=== PATIENT | male | born 1960 ===

== ENCOUNTER → 2019-04-09 | Outpatient (CLI) | payer OTHER ==
[~2019-04-09] VITALS: Ht 175.3 cm; Wt 131.5 kg
[~2019-04-09] MED LIST: ALEVE220 MG PO; ASPIR 8181 MG PO; B-COMPLEX TABL0.4 MG PO; CALCIUM 600 +1 EAC2 PO; CRESTOR10 MG PO; DEMADEX20 MG PO; IRON325 PO; K-DUR 20 MEQ T20 MEQ PO; LOPERAMIDE 2 MG2 M1 PO; PRENATAL MULTI1 EAC4 PO; PROTONIX40 M1 PO; SILDENAFIL20 MG PO; VITAMIN D5000 UNIT PO; [UNRECOGNIZED DRUG - OTHER] PO
[2019-04-09 14:44] VITALS: BP 131/79
--- NOTE | 2019-04-09 15:18 | NUR ---
Pain Clinic Assessment: 1. History of Osteoarthritis: Not Applicable History of Rheumatoid Arthritis: Not Applicable 2. Height: 5 ft. 9 in. 175.3 cm. Weight: 290.0 lb. oz. 131.544 kg. Patient's BMI: 42.8 3. Vital Signs: BP: 131/79 Pulse: 70 Resp: 16 Temp: 02 Sat: 98 ECG Mon: 4. Pain Intensity: 8 5. Fall Risk: Dizziness: Y Needs help standing or walking: N Fallen in the last 3 months: N Fall risk comments: 6. Patient on Blood Thinner: None 7. History of Hypertension: Y 8. Opioid Therapy greater than 6 weeks: N Opiate Contract Signed: 9. Risk Assessment Tool Provided: 10. Functional Assessment Tool: 11. Recreational Drug Use: Never Drug Type: Tobacco Use: Former Smoker Tobacco Type: Cigars Amount or Packs/day: How Many Years: Alcohol Use: Yes Frequency: Daily Quant: 4-5
--- NOTE | 2019-04-23 13:03 | HPC ---
[facility] [address] [place] [address] PAIN MANAGEMENT CONSULTATION Name: JAMES PARISI [id number] Admission: 04/09/19 ������������������ Attend Phys: Travis Peck DO Discharge: ������������������ Date of : 56 Report #: [id number] THIS REPORT FOR: //name// CC: Juan Peck DATE OF SERVICE: 04/09/2019 REFERRING PHYSICIAN: Jr Hinton M.D. CHIEF COMPLAINT: Low back pain. HISTORY OF PRESENT ILLNESS: As you know, the patient is a pleasant 58-year-old male who reports acute onset of low back pain and upper buttock pain that presented 10/2017 or 11/2017. The patient denies any specific injury or trauma that may have led to symptom development. He states that he experienced some numbness and tingling in the lower extremities, which actually preceded his back pain. He has participated in home physical therapy program that is physician directed. He has sought chiropractic manipulation, acupuncture therapy and has taken nonsteroidal anti-inflammatories. Unfortunately, this has not improved the patient's symptoms. Due to lack of improvement with conservative treatment options, the patient was subsequently referred to our clinic. The patient indicates today pain is continuous, steady and constant. He describes the pain as shooting, throbbing, sharp and stabbing, numbness and tingling. He places current pain score at 8/10, daily average at 8-9/10, worst the pain has been is 10/10. The patient states the pain is exacerbated with sudden movements and certain activities; it improves with lying down to rest. He has been referred to our service to discuss treatment options for suspected lumbar radiculopathy. PAST MEDICAL HISTORY: 1. Morbid obesity. 2. Osteoarthritis. 3. Gastroesophageal reflux disease. 4. Dyslipidemia. 5. Erectile dysfunction. PAST SURGICAL HISTORY: 1. Cholecystectomy. 2. Biliopancreatic diversion. SOCIAL HISTORY: The patient denies tobacco, IV or illicit drug use. Admits to 5 alcoholic beverages per day. 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 He is working, not receiving workmen's compensation nor is he trying to obtain disability benefits. [place] [address] PAIN MANAGEMENT CONSULTATION Name: ISAKJAMES CHAVESUR Room #: REG [facility].#: [id number] Admission: 04/09/19 ������������������ Attend Phys: Travis Peck DO Discharge: ������������������ Date of : 56 Report #: [id number] litigation in regards to pain. He is unaccompanied at today's visit. REVIEW OF SYSTEMS: Positive for weight gain, fatigue and weakness, wearing corrective eyewear, hearing loss with tinnitus, shortness of breath lying flat, frequent diarrhea interspersed with constipation, nocturia, sexual difficulty, lightheadedness, dizziness, numbness and tingling sensations and head injury. All other review of systems negative per 12-point review of systems, other than those listed in the history of present illness. Pain impact score 48/70, indicating [id number] interference with daily activities secondary to pain. ALLERGIES: No known drug allergies. CURRENT MEDICATIONS: Torsemide 20 mg once a day, sildenafil 20 mg p.r.n., ferrous sulfate 325 mg per day, Devrom Bismuth 200 mg twice a day, naproxen sodium 220 mg twice a day, cholecalciferol 5000 units once a day, Imodium 2 mg p.r.n., aspirin 81 mg per day, vitamin B complex 1 tab per day, calcium carbonate 1 tab per day, pantoprazole 40 mg per day, potassium chloride 20 mEq p.o. daily and lovastatin 10 mg per day. IMAGING DATA: MRI lumbar spine obtained 02/09/2019 shows L1-L2, no disk herniation, central canal neural foraminal stenosis. L2-L3, no evidence of disk herniation, central canal neural foraminal stenosis. L3-L4, mild bilateral facet degenerative changes, mild associated left foraminal narrowing; right foramen is normal. There is no central canal stenosis. L4-L5, [id number] bilateral facet degenerative changes, resulting in 3 mm anterolisthesis-associated moderate bilateral neural foraminal narrowing. No definitive nerve root impingement, moderate central canal stenosis. L5-S1, mild bilateral facet arthropathy. No evidence of disk herniation or central canal stenosis or foraminal stenosis. PHYSICAL EXAMINATION: VITAL SIGNS: Blood pressure 131/79, pulse 70, respiratory rate 16 and unlabored. The patient is 98% on room air. Height 5 feet 9 inches tall, weight 290 pounds, BMI calculated 42.8. GENERAL: Well-developed, well-nourished, well-hydrated, morbidly obese 58-year-old male, appearing his stated age. Pain is rated around 8/10. HEENT: Normocephalic, atraumatic. Pupils equal, round and reactive to light. Extraocular muscles are intact. Sclerae nonicteric without injection. NEUROLOGIC: Cranial nerves 2-12 grossly intact. Speech fluent. The patient deemed a good historian. LUNGS: Clear. No wheezes, rhonchi or rales. CARDIOVASCULAR: Regular. No appreciable gallop, no rub. ABDOMEN: Soft, obese. Normoactive bowel sounds. EXTREMITIES: Show no clubbing, no cyanosis and no edema. [facility] [address] [place] [address] PAIN MANAGEMENT CONSULTATION Name: ISAKJAMES IVÁN Room #: REG [facility] Turner#: [id number] Admission: 04/09/19 ������������������ Attend Phys: Travis Peck DO Discharge: ������������������ Date of : 56 Report #: [id number] MUSCULOSKELETAL: Lower extremity strength appears symmetrical, 5/5. Slight giveaway strength noted with hip flexion, knee extension on the right, causing buttock and posterolateral thigh pain. The patient appears to be intact to light touch from L1 through S2 dermatomes. Seated straight leg raising negative. Supine straight leg raising positive on the right. Epifanio's test negative. Modified Gaenslen's positive for axial low back pain. Ankle clonus negative. Babinski is negative. Muscle bulk and tone appear symmetrical in the lower extremities. ASSESSMENT: 1. Lumbar radiculopathy. 2. Spinal stenosis of the lumbar spine. 3. Displacement of lumbar intervertebral disk with radiculopathy. 4. Lumbosacral spondylosis with radiculopathy. 5. Neural foraminal stenosis of the lumbar spine. 6. Degeneration of the lumbar spine. 7. Chronic intractable pain. PLAN: 1. Based on today's physical exam and history the patient has provided, the description the patient uses in regards to pain as well as location of symptoms, likely source of the patient's pain is lumbar radiculopathy. He also suffers from what appears to be some facet arthropathy causing axial back pain issues. We discussed with the patient the treatment options for lumbar radicular symptoms today. The following was discussed with the patient. We discussed physical therapy, stretching exercise, core strengthening and weight loss as a treatment option. We discussed medication management, adding neuropathic pain medication or low-dose opioid for pain control. We discussed epidural injections under fluoroscopic guidance, for which the patient was referred to our clinic. We also discussed intra-articular facet injections, medial branch nerve blocks to address any facet arthropathy pain. We also discussed surgical options. After reviewing risks and benefits of all proposed treatment options, the patient chose to begin with physical therapy, stretching exercise, core strengthening and an attempt at weight loss. 2. The patient was offered and provided a referral for physical therapy. The patient can begin the physical therapy at his earliest convenience. The patient will trial the more conservative option initially. If this is ineffective, then he will return and we will discuss further treatment options. He was given a referral for physical therapy today. 3. We made no changes in the patient's medication management. He will continue medications as previously prescribed. 4. We will see the patient back in followup visit on an as needed basis. He wishes to trial more conservative treatment before moving forward with more aggressive treatment options. We will be available to see him back in followup visit. [address] [address] PAIN MANAGEMENT CONSULTATION Name: JAMES PARISI Room #: REG [facility] Turner#: [id number] Admission: 04/09/19 ������������������ Attend Phys: Travis Peck DO Discharge: ������������������ Date of : 56 Report #: [id number] We wish to thank Dr. Jr Hinton for the referral of the patient to our clinic. We will keep you apprised of his response to treatment as we address ongoing back pain issues. Again, we wish to thank you for the opportunity to see this patient in consultation. ��������������������������������������������� <ELECTRONICALLY SIGNED> ���������������������������������������� By: Travis Peck DO ��������������������������������������������� 04/23/19 1303 1320 1415 Travis Peck DO /nt
== END ==
LOC: PAIN 06:58
DX: M47.27 Other spondylosis with radiculopathy, lumbosacral region (principal); M48.062 Spinal stenosis, lumbar region with neurogenic claudication; M51.16 Intervertebral disc disorders with radiculopathy, lumbar region; G89.4 Chronic pain syndrome; Z79.899 Other long term (current) drug therapy

== ENCOUNTER → 2019-09-24 | Outpatient (CLI) | payer OTHER ==
[~2019-09-24] VITALS: Ht 172.7 cm; Wt 137.4 kg
[~2019-09-24] MED LIST changes: +DICLOFENAC SOD50 M1 PO
[2019-09-24 08:08] VITALS: BP 145/82
--- NOTE | 2019-09-24 08:17 | NUR ---
Pain Clinic Assessment: 1. History of Osteoarthritis: DENIES History of Rheumatoid Arthritis: DENIES 2. Height: 5 ft. 8 in. 172.7 cm. Weight: 303.0 lb. oz. 137.440 kg. Patient's BMI: 46.1 3. Vital Signs: BP: 145/82 Pulse: 74 Resp: 18 Temp: 02 Sat: 95 ECG Mon: 4. Pain Intensity: 7-8 5. Fall Risk: Dizziness: N Needs help standing or walking: N Fallen in the last 3 months: N Fall risk comments: 6. Patient on Blood Thinner: None 7. History of Hypertension: Y 8. Opioid Therapy greater than 6 weeks: N Opiate Contract Signed: 9. Risk Assessment Tool Provided: 10. Functional Assessment Tool: 11. Recreational Drug Use: Never Drug Type: Tobacco Use: Former Smoker Tobacco Type: Amount or Packs/day: How Many Years: Alcohol Use: Yes Frequency: Daily Quant: BEER- 2-3 A DAY
--- NOTE | 2019-09-25 12:58 | HPC ---
[facility] [address] [place] [address] PAIN MANAGEMENT CONSULTATION Name: ISAKJR JAMES MINOR Room #: REG [facility].#: [id number] Admission: 09/24/19 Attend Phys: Travis Peck DO Discharge: Date of : 56 Report #: [id number] THIS REPORT FOR: //name// CC: Jr Peck DATE OF SERVICE: 09/24/2019 REFERRING PHYSICIAN: Jr Hinton MD. CHIEF COMPLAINT: Low back pain, bilateral lower extremity pain. HISTORY OF PRESENT ILLNESS: As you know, the patient is a pleasant 58-year-old male returning in followup visit stating that physical therapy that we provided for treatment at last visit has been mildly effective. Unfortunately, the patient cannot maintain a schedule of physical therapy and thus has lost efficacy. He returns today in followup visit, rating pain today 7-8/10. He states that pain begins in low back, radiates down both legs. He has bilateral lower extremity paresthesias that may be due to the L4-L5 central canal stenosis. He returns to discuss options for treatment. He denies new injury, trauma or any changes in medical issues since our last visit. ALLERGIES: No known drug allergies. CURRENT MEDICATIONS: Torsemide, sildenafil, ferrous sulfate, Devrom Bismuth, naproxen, cholecalciferol, Imodium, aspirin, vitamin B complex, calcium carbonate, pantoprazole, potassium chloride, lovastatin. SOCIAL HISTORY: The patient denies tobacco, IV or illicit drug use. Admits to 5 alcoholic beverages per day. 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 IMAGING: No new imaging available. PHYSICAL EXAMINATION: VITAL SIGNS: Blood pressure 145/82, pulse 74, respiratory rate 18 and unlabored. The patient is 95% on room air. Height 5 feet 8 inches tall, weight 303 pounds, BMI calculated 46.1. GENERAL: Well-developed, well-nourished, well-hydrated, severely morbidly obese 58-year-old male appearing stated age, pain is rated around 7-8/10. HEENT: Normocephalic, atraumatic. Pupils equal, round, reactive to light. EXTREMITIES: Show no clubbing, no cyanosis, and no edema. MUSCULOSKELETAL: Lower extremity strength equal and symmetrical 5/5, intact to light touch from L1 through S2 dermatomes. Seated straight leg raising is negative. Supine straight leg raising is positive on the right. Epifanio's test [address] [address] PAIN MANAGEMENT CONSULTATION Name: JR ISAK JAMES MINOR Room #: REG [facility]#: [id number] Admission: 09/24/19 Attend Phys: Travis Peck DO Discharge: Date of : 56 Report #: [id number] is negative. Modified Gaenslen's positive for axial low back pain. Muscle bulk and tone appears equal and symmetrical in lower extremities. ASSESSMENT: 1. Symptomatic lumbar radiculopathy. 2. Spinal stenosis of the lumbar spine. 3. Displacement of lumbar intervertebral disk with radiculopathy. 4. Lumbosacral spondylosis with radiculopathy. 5. Neural foraminal stenosis of the lumbar spine. 6. Lumbar degeneration. 7. Chronic intractable pain. PLAN: 1. The patient returns today in followup visit where we have discussed at length today treatment options available beyond physical therapy. These would include medication management utilizing neuropathic pain medications in the form of either nortriptyline, amitriptyline, Cymbalta, gabapentin or Lyrica. We discussed lumbar epidural injections under fluoroscopic guidance for which the patient was referred to our clinic. We also discussed surgical options with the patient that we would recommend including spinal cord stimulator and traditional surgical decompression. The patient states that he had a discussion with a friend who underwent laser surgery at and he is looking into this option as well. After a very long discussion with the patient in regards to treatment options, we made the following adjustments. 2. The patient will be started on diclofenac 50 mg dose 1 tab p.o. b.i.d. I have given the patient #60 tablets, 2 refills, 3 months' worth of medication. I advised the patient to watch for dyspepsia, worsening of blood pressure, lower extremity edema with use of medication. 3. The patient was provided a prescription of Horizant 600 mg dose. He will start this one tab p.o. at bedtime for 1 week, then escalate to 2 tabs p.o. at bedtime. This will provide a neuropathic pain control and assist in his bilateral neuropathy and low back symptoms. He will watch for side effects of sleepiness, disorientation, confusion, mental slowing with the medication. 4. We will see the patient back in followup visit on an as needed basis for adjustments in medication management and to discuss epidural injections. He will be looking into the services for possible laser surgery as he is looking "for effects." We will make ourselves available for any information is necessary for that discussion with . He will need to probably receive a referral from his primary care physician to be seen at the services. <ELECTRONICALLY SIGNED> By: Travis Peck DO 09/25/19 [id number] Travis Peck DO /jules
== END ==
LOC: PAIN 06:41
DX: M51.16 Intervertebral disc disorders with radiculopathy, lumbar region (principal); M47.26 Other spondylosis with radiculopathy, lumbar region; M48.061 Spinal stenosis, lumbar region without neurogenic claudication; M47.818 Spondylosis without myelopathy or radiculopathy, sacral and sacrococcygeal region; G89.29 Other chronic pain; Z79.899 Other long term (current) drug therapy

== ENCOUNTER → 2021-01-08 | Outpatient (CLI) | payer OTHER | LOC: SJCVCIMAG 07:34 | PROVIDERS: ATTEND Internal Medicine | DX: I07.1 Rheumatic tricuspid insufficiency (principal); I10 Essential (primary) hypertension ==